=== PATIENT | female | born 1955 | race Caucasian/White ===

== ENCOUNTER 2022-01-12 11:36 | Emergency (ER) | payer OTHER, MEDICAID ==
[~2022-01-12] VITALS: Ht 157.5 cm; Wt 85.0 kg
[2022-01-12 11:57] VITALS: BP 146/84
[2022-01-12] MEDS ORDERED: KETOROLAC TROMETH 60MG/2ML VIAL IM ONE (14:15)
[2022-01-12] MEDS ORDERED: IBUP800T27 PO (14:33)
== END 2022-01-12 15:00 | disposition home or self-care (01) ==
LOC: ER 11:36
DX: S76.012A Strain of muscle, fascia and tendon of left hip, initial encounter (principal); M16.9 Osteoarthritis of hip, unspecified; W18.39XA Other fall on same level, initial encounter; Y93.89 Activity, other specified; Y92.89 Other specified places as the place of occurrence of the external cause; Y99.8 Other external cause status
CPT/HCPCS: 73502; 96372; 99283; J1885